=== PATIENT | male | born 1960 | race Caucasian/White ===

== ENCOUNTER 2020-02-27 06:33 | Inpatient (IN) ==
[~2020-02-27 06:33] MED LIST: *HR* HYDROmorphone 2 MG TABLET PO PRN; *HR* Labetalol 20 MG/4 ML SYRINGE IVP PRN; *HR* OxyCODONE Immed Rel 5 MG TABLET PO PRN; *HR* Promethazine 25 MG/ML VIAL IVP PRN; Pregabalin 75 MG CAPSULE PO ONE
[2020-02-27] MEDS ORDERED: Clindamycin 900 MG/50 ML 900 MG/50 ML IV.SOLN IVPB ONE (06:55)
[2020-02-27] MEDS ORDERED: *HR* HYDROmorphone 2 MG TABLET PO PRN (07:00)
[2020-02-27] MEDS ORDERED: *HR* Labetalol 20 MG/4 ML SYRINGE IVP PRN (07:00)
[2020-02-27] MEDS ORDERED: Pregabalin 75 MG CAPSULE PO ONE (07:00)
[2020-02-27] MEDS ORDERED: Ringers Solution, Lactated 1,000 ML IVC SCH ×2 (07:00→12:28)
[2020-02-27] MEDS ORDERED: Acetaminophen IV 1,000 MG/100 ML INFUS..BTL IVPB ONE (07:00)
[2020-02-27] MEDS ORDERED: *HR* Promethazine 25 MG/ML VIAL IVP PRN (07:00)
[2020-02-27] MEDS ORDERED: Famotidine 20 MG/2 ML VIAL IVP ONE (07:00)
[2020-02-27] MEDS ORDERED: Ropivacaine/PF 0.5% 30 ML VIAL ONE (08:12)
[2020-02-27] MEDS ORDERED: *HR* Midazolam HCl 2 MG/2 ML VIAL ONE (08:13)
[2020-02-27] MEDS ORDERED: *HR* FentaNYL (PF) 100 MCG/2 ML VIAL ONE (08:13)
[2020-02-27] MEDS ORDERED: *HR* PHENYLEPHRINE 1,000 MCG/10 ML SYRINGE IVP ONE (08:14)
[2020-02-27] MEDS ORDERED: Lidocaine -MPF 2% 2 ML VIAL ONE (08:58)
[2020-02-27] MEDS ORDERED: *HR* Propofol 200 MG/20 ML VIAL IVP ONE (08:58)
[2020-02-27] MEDS ORDERED: *HR* Succinylcholine 200 MG/10 ML VIAL IVP ONE (08:58)
[2020-02-27] MEDS ORDERED: Ethanol\\Acetic Acid\\Na Ace\\Ben 1,000 ML IRRIG.SOLN IR ONE (09:52)
[2020-02-27] MEDS ORDERED: Lidocaine -MPF 4% 5 ML AMPUL ONE (09:53)
[2020-02-27] MEDS ORDERED: EPHEDrine 50 MG/ML VIAL ONE (10:38)
[2020-02-27] MEDS ORDERED: Ondansetron 4 MG/2 ML VIAL ONE (10:45)
[2020-02-27] MEDS: *HR* OxyCODONE Immed Rel 5 MG TABLET PO PRN ×2 (11:48→11:58)
[2020-02-27 11:58] LABS: Hematocrit 41.6 % (37.5-50.1); Hemoglobin 13.1 g/dL (12.9-16.9)
[2020-02-27] MEDS ORDERED: *HR* OxyCODONE/APAP 5/325 TABLET PO PRN (12:28)
[2020-02-27] MEDS ORDERED: MOM Conc 10 ML UD.LIQ PO PRN (12:28)
[2020-02-27] MEDS ORDERED: *HR* OxyCODONE Immed Rel 5 MG TABLET PO PRN (12:28)
[2020-02-27] MEDS ORDERED: Naloxone 0.4 MG/ML INJ IVP PRN (12:28)
[2020-02-27] MEDS ORDERED: tiZANidine 4 MG TABLET PO PRN (12:28)
[2020-02-27] MEDS ORDERED: cloNIDine HCL 0.1 MG TABLET PO PRN (12:28)
[2020-02-27] MEDS ORDERED: Ondansetron 4 MG/2 ML VIAL IVP PRN (12:28)
[2020-02-27] MEDS ORDERED: Sennosides 8.6 MG TABLET PO PRN (12:28)
[2020-02-27] MEDS ORDERED: Gabapentin 300 MG CAPSULE PO SCH (15:00)
[2020-02-27 15:42] VITALS: BP 156/94
[2020-02-27] MEDS ORDERED: Clindamycin 900 MG/50 ML 900 MG/50 ML IV.SOLN IVPB SCH (16:00)
[2020-02-27] MEDS ORDERED: *HR* Enoxaparin 30 MG/0.3 ML SYRINGE SQ SCH ×2 (18:00)
[2020-02-27] MEDS ORDERED: Metoprolol 100 MG TABLET PO SCH (21:00)
[2020-02-28] MEDS ORDERED: amLODIPine 5 MG TABLET PO SCH (09:00)
== END 2020-02-27 16:57 | disposition home or self-care (01) | DRG 322 ==
LOC: SAMDAY 06:33 → 3NENU 12:23
PROVIDERS: ADMIT Orthopaedic Surgery; ATTEND Orthopaedic Surgery

== ENCOUNTER 2022-01-19 15:19 | Inpatient (IN) ==
[2022-01-19] MEDS ORDERED: Naloxone 0.4 MG/ML INJ IVP PRN (18:32)
[2022-01-19 19:21] LABS: Basophils # 0.1 K/mcL (0.0-0.2); Basophils % 0.4 %; Eosinophils # 0.1 K/mcL (0.0-0.6); Eosinophils % 0.7 %; Hemoglobin 8.3 g/dL (12.9-16.9); Immature Granulocytes % 1.6 % (0-4); Lymphocytes # 3.4 K/mcL (0.6-4.6); Lymphocytes % 21.8 %; Mean Corpuscular HGB Conc 31.9 g/dL (31.6-35.5); Mean Platelet Volume 9.9 fL (9.4-12.4); Monocytes # 1.1 K/mcL (0.0-1.3); Monocytes % 7.4 %; Neutrophils # 10.5 K/mcL (1.6-8.9); Nucleated Red Blood Cells 0.1 /100 WBC (0); Platelet Count 261 K/mcL (140-400); Red Blood Count 2.68 M/mcL (4.19-5.50); Red Cell Distribution Width 13.8 % (11.5-14.5); Segmented Neutrophils % 68.1 %; White Blood Count 15.4 K/mcL (4.3-11.1)
[2022-01-19 19:33] LABS: INR 1.2; Prothrombin Time 13.9 Seconds (9.4-12.1)
[2022-01-19 19:35] LABS: Alanine Aminotransferase 14 Units/L (7-52); Albumin 3.6 g/dL (3.5-5.7); Alkaline Phosphatase 46 Units/L (34-104); Aspartate Amino Transferase 18 Units/L (13-39); BUN/Creatinine Ratio 28 (6-26); Bilirubin,Total 0.4 mg/dL (0.3-1.0); Blood Urea Nitrogen 29 mg/dL (8-23); Calcium 8.1 mg/dL (8.6-10.3); Carbon Dioxide 25 mEq/L (23-29); Chloride 113 mEq/L (98-107); Globulin 1.8 g/dL (2.4-3.5); Glucose 110 mg/dL (70-105); Magnesium 1.9 mg/dL (1.6-2.6); Osmolality,Calculated 306 (280-300); Phosphorous 2.2 mg/dL (2.7-4.5); Potassium 3.6 mEq/L (3.5-5.1); Sodium 145 mEq/L (136-145); Total Protein 5.4 g/dL (6.4-8.9); eGFR For African Americans > 60 (> 60); eGFR For Non-African Americans > 60 (> 60)
[2022-01-19] MEDS ORDERED: Ringers Solution, Lactated 1,000 ML IVC SCH (21:15)
[2022-01-19 21:43] LABS: Estimated Average Glucose 111 mg/dl; Hemoglobin A1C 5.5 %
[2022-01-19] MEDS: Pantoprazole 40 MG in 0.9 % Sodium Chloride Mini Bag 100 ML IVC SCH (22:00)
[2022-01-20] MEDS: metroNIDAZOLE 500 MG TABLET PO SCH ×2 (03:02→08:16)
[2022-01-20 03:04] LABS: Hematocrit 23.7 % (37.5-50.1); Hemoglobin 7.8 g/dL (12.9-16.9)
[2022-01-20] MEDS: Pantoprazole 40 MG in 0.9 % Sodium Chloride Mini Bag 100 ML IVC SCH ×2 (03:05→06:48)
[2022-01-20 05:29] LABS: Basophils # 0.1 K/mcL (0.0-0.2); Basophils % 0.5 %; Eosinophils # 0.2 K/mcL (0.0-0.6); Eosinophils % 1.9 %; Hematocrit 23.1 % (37.5-50.1); Hemoglobin 7.4 g/dL (12.9-16.9); Immature Granulocytes % 1.3 % (0-4); Lymphocytes # 2.8 K/mcL (0.6-4.6); Lymphocytes % 22.3 %; Mean Corpuscular Hemoglobin 31.1 pg (28.0-33.3); Mean Corpuscular Volume 97.1 fL (83.0-100.0); Monocytes # 0.8 K/mcL (0.0-1.3); Monocytes % 6.6 %; Neutrophils # 8.5 K/mcL (1.6-8.9); Platelet Count 203 K/mcL (140-400); Red Blood Count 2.38 M/mcL (4.19-5.50); Red Cell Distribution Width 13.8 % (11.5-14.5); Segmented Neutrophils % 67.4 %; White Blood Count 12.7 K/mcL (4.3-11.1)
[2022-01-20 06:03] LABS: BUN/Creatinine Ratio 25 (6-26); Blood Urea Nitrogen 24 mg/dL (8-23); Calcium 8.1 mg/dL (8.6-10.3); Carbon Dioxide 25 mEq/L (23-29); Chloride 111 mEq/L (98-107); Glucose 104 mg/dL (70-105); Osmolality,Calculated 302 (280-300); Potassium 3.4 mEq/L (3.5-5.1); Sodium 144 mEq/L (136-145); eGFR For African Americans > 60 (> 60); eGFR For Non-African Americans > 60 (> 60)
[2022-01-20] MEDS ORDERED: Octreotide 400 MCG in 0.9 % Sodium Chloride 100 ML IVC SCH (09:30)
[2022-01-20] MEDS ORDERED: Metoclopramide 10 MG/2 ML VIAL IVP ONE (09:30)
[2022-01-20] MEDS ORDERED: Octreotide 50 MCG/ML INJ IVP ONE (09:45)
[2022-01-20] MEDS ORDERED: Lidocaine -MPF 2% 2 ML VIAL ONE (11:00)
[2022-01-20] MEDS ORDERED: *HR* Propofol 200 MG/20 ML VIAL IVP ONE (11:00)
[2022-01-20 14:10] LABS: Hepatitis B Core IgM Nonreactive (Nonreactive); Hepatitis C Virus Antibody Nonreactive (Nonreactive)
[2022-01-20 16:17] LABS: Hepatitis A Antibody IgM Nonreactive (Nonreactive)
[2022-01-20 18:34] LABS: Hematocrit 23.8 % (37.5-50.1); Hemoglobin 7.6 g/dL (12.9-16.9)
[2022-01-21 06:26] LABS: Hematocrit 20.5 % (37.5-50.1); Hemoglobin 6.8 g/dL (12.9-16.9); Mean Corpuscular HGB Conc 33.2 g/dL (31.6-35.5); Mean Corpuscular Hemoglobin 32.1 pg (28.0-33.3); Mean Corpuscular Volume 96.7 fL (83.0-100.0); Mean Platelet Volume 10.4 fL (9.4-12.4); Platelet Count 210 K/mcL (140-400); Red Blood Count 2.12 M/mcL (4.19-5.50); Red Cell Distribution Width 13.6 % (11.5-14.5); White Blood Count 10.2 K/mcL (4.3-11.1)
[2022-01-21 06:50] LABS: BUN/Creatinine Ratio 18 (6-26); Blood Urea Nitrogen 15 mg/dL (8-23); Calcium 8.1 mg/dL (8.6-10.3); Carbon Dioxide 26 mEq/L (23-29); Chloride 110 mEq/L (98-107); Glucose 108 mg/dL (70-105); Osmolality,Calculated 297 (280-300); Potassium 3.4 mEq/L (3.5-5.1); Sodium 143 mEq/L (136-145); eGFR For African Americans > 60 (> 60); eGFR For Non-African Americans > 60 (> 60)
[2022-01-21 07:56] LABS: Magnesium 1.8 mg/dL (1.6-2.6); Phosphorous 2.7 mg/dL (2.7-4.5)
[2022-01-21] MEDS ORDERED: 0.9 % Sodium Chloride 500 ML ONE (09:40)
[2022-01-21 14:41] LABS: Hematocrit 25.7 % (37.5-50.1)
[2022-01-21 14:51] LABS: Hemoglobin 8.4 g/dL (12.9-16.9)
[2022-01-22 02:49] LABS: Hematocrit 27.2 % (37.5-50.1); Mean Corpuscular HGB Conc 33.1 g/dL (31.6-35.5); Mean Corpuscular Hemoglobin 30.6 pg (28.0-33.3); Mean Corpuscular Volume 92.5 fL (83.0-100.0); Mean Platelet Volume 10.1 fL (9.4-12.4); Platelet Count 239 K/mcL (140-400); Red Blood Count 2.94 M/mcL (4.19-5.50); White Blood Count 10.7 K/mcL (4.3-11.1)
[2022-01-22 03:03] LABS: BUN/Creatinine Ratio 15 (6-26); Blood Urea Nitrogen 11 mg/dL (8-23); Calcium 8.8 mg/dL (8.6-10.3); Carbon Dioxide 25 mEq/L (23-29); Chloride 107 mEq/L (98-107); Glucose 103 mg/dL (70-105); Osmolality,Calculated 288 (280-300); Potassium 3.3 mEq/L (3.5-5.1); Sodium 139 mEq/L (136-145); eGFR For African Americans > 60 (> 60); eGFR For Non-African Americans > 60 (> 60)
[2022-01-22 04:08] VITALS: BP 178/102; PULSE 87; TEMP 98.2; O2SAT 98
[2022-01-22] MEDS ORDERED: atenoloL 50 MG TABLET PO SCH (09:00)
[2022-01-22] MEDS ORDERED: amLODIPine 5 MG TABLET PO SCH (09:00)
== END 2022-01-22 10:55 | disposition home or self-care (01) | DRG 241 ==
LOC: 3ANU → SUATTDRO 17:45
PROVIDERS: ADMIT Internal Medicine; ATTEND Internal Medicine
PROC: ENDOEBX (2022-01-20 10:30)